=== PATIENT | female | born 1985 | race Caucasian/White ===

== ENCOUNTER 2021-05-27 23:37 | Emergency (ER) | payer OTHER ==
[~2021-05-27] VITALS: Ht 175.3 cm; Wt 131.5 kg
[2021-05-27] MEDS ORDERED: BUSPIRONE HCL10 MG PO (23:51)
[2021-05-27] MEDS ORDERED: FLUOXETINE HCL20 M1 PO (23:51)
[2021-05-27] MEDS ORDERED: SPIRONOLACTONE100 M1 PO (23:52)
[2021-05-27] MEDS ORDERED: GABAPENTIN100 MG PO (23:52)
[2021-05-27] MEDS ORDERED: DORYX MPC120 MG PO (23:53)
[2021-05-27] MEDS ORDERED: MELOXICAM7.5 MG PO (23:53)
[2021-05-28] MEDS ORDERED: PREDNISONE50 MG PO (02:42)
[2021-05-28 02:50] VITALS: BP 127/63
== END 2021-05-28 02:53 | disposition home or self-care (01) ==
LOC: M.ERS 23:37
DX: T78.40XA Allergy, unspecified, initial encounter (principal); Z79.899 Other long term (current) drug therapy; Z91.02 Food additives allergy status; X58.XXXA Exposure to other specified factors, initial encounter